=== PATIENT | female | born 1995 | race Caucasian/White ===

== ENCOUNTER 2016-08-08 19:03 | Emergency (ER) | payer OTHER | END 2016-08-08 20:19 | disposition home or self-care (01) | LOC: ER 19:03 | DX: O20.9 Hemorrhage in early pregnancy, unspecified (principal); R10.30 Lower abdominal pain, unspecified; Z3A.00 Weeks of gestation of pregnancy not specified | CPT/HCPCS: 81025; 99283 ==

== ENCOUNTER 2016-08-09 14:10 | Emergency (ER) | payer OTHER ==
[2016-08-09 15:02] LABS: BASO % 0.1 % (0.1-1.2); EOS # 0.1 10_X3_uL (0.0-0.4); EOS % 0.6 % (0.7-5.8); GRAN # 7.2 10_X3_uL (1.6-6.1); GRAN % 76.5 % (34.0-71.1); HEMOGLOBIN 13.8 g/dL (11.2-15.7); LYMPH # 1.6 10_X3_uL (1.2-3.7); LYMPH % 16.6 % (19.3-51.7); MEAN CORPUSCULAR HEMOGLOBIN 33.2 pg (27.0-33.0); MEAN CORPUSCULAR HGB CONC 35.4 g/dL (32.0-36.0); MEAN CORPUSCULAR VOLUME 93.8 fL (79-95); MEAN PLATELET VOLUME 10.5 fl (7.5-11.5); MONO # 0.6 10_X3_uL (0.2-0.9); MONO % 6.2 % (4.7-12.5); PLATELET COUNT 187 x10_3/uL (182-369); RED BLOOD COUNT 4.16 x10_6/uL (3.9-5.2); RED CELL DISTRIBUTION WIDTH 11.5 % (11.7-14.4); WHITE BLOOD COUNT 9.5 x10_3/uL (4.0-10.0)
[2016-08-09 15:15] LABS: INR 1.1 (0.9-1.1); PARTIAL THROMBOPLASTIN TIME 24.7 SECONDS (21.3-29.3)
[2016-08-09 15:17] LABS: BLOOD UREA NITROGEN 9 mg/dL (7-18); CALCIUM 9.3 mg/dL (8.7-10.7); CARBON DIOXIDE 25 mmol/L (21-32); CREATININE < 0.5 mg/dL (0.6-1.3); GLUCOSE,RANDOM 97 mg/dL (70-99); POTASSIUM 3.6 mmol/L (3.5-5.1); SODIUM 137 mmol/L (136-145)
== END 2016-08-09 17:20 | disposition other institution (70) ==
LOC: ER 14:10
PROVIDERS: Emergency Medicine
DX: O26.891 Other specified pregnancy related conditions, first trimester (principal); O99.331 Smoking (tobacco) complicating pregnancy, first trimester; R10.9 Unspecified abdominal pain
CPT/HCPCS: 36415; 76856; 80048; 84703; 85025; 85610; 85730; 86900; 86901; 96372; 99284-25